=== PATIENT | female | born 1985 | race Caucasian/White ===

== ENCOUNTER 2017-08-14 11:37 | Emergency (ER) | payer SELFPAY ==
[2017-08-14 12:01] LABS: Bilirubin Negative (Negative); Blood, Urine Negative (Negative); Glucose, Urine (Dipstick) Negative (Negative); Ketone, Urine Negative (Negative); Nitrite Negative (Negative); Protein, Urine (Dipstick) Negative (Neg-Trace); Urobilinogen 0.2 mg/dL (0.2-1.0)
[2017-08-14 12:07] LABS: Bacteria/HPF 1+ HPF (None Seen)
[2017-08-14 12:14] LABS: Hyaline Casts/LPF 0-3 HYALINE CAST LPF (0-3 Hyaline); RBC/HPF 0-3 HPF (0-3)
== END 2017-08-14 12:38 | disposition home or self-care (01) ==
LOC: ERS 11:37
DX: B37.3 Candidiasis of vulva and vagina (principal); F41.9 Anxiety disorder, unspecified; F32.9 Major depressive disorder, single episode, unspecified; F17.210 Nicotine dependence, cigarettes, uncomplicated
CPT/HCPCS: 81003; 81015; 81025; 87480; 87491; 87510; 87591; 87660; 99283

== ENCOUNTER 2018-01-07 14:46 | Outpatient (CLI) | payer OTHER | END 2018-01-07 14:47 | disposition home or self-care (01) | LOC: BICMAMMO 14:46 | PROVIDERS: ATTEND Nurse Practitioner Women's Health | DX: N63.10 Unspecified lump in the right breast, unspecified quadrant (principal) | CPT/HCPCS: 77066; G0279 ==

== ENCOUNTER 2020-03-03 23:31 | Emergency (ER) | payer OTHER ==
[2020-03-03] MEDS ORDERED: Aspirin Chewable 81 MG TAB ONE (23:45)
[2020-03-04] MEDS ORDERED: Dexamethasone 10 MG/ML VIAL ONE (00:01)
[2020-03-04 00:09] LABS: #Basophils 0.1 thou/uL (0.0-0.2); #Eosinphils 0.6 thou/uL (0.0-0.7); #Lymphocytes 3.8 thou/uL (1.20-3.40); #Monocytes 0.7 thou/uL (0.11-0.59); #Neutrophils 5.1 thou/uL (1.40-6.50); %Basophils 1.1 % (0.0-1.0); %Eosinophils 5.8 % (0.0-10.0); %Lymphocytes 37.2 % (21.0-51.0); %Monocytes 6.4 % (0.0-10.0); %Neutrophils 49.4 % (42.0-75.0); Hemoglobin 14.9 g/dL (12.0-16.0); Mean Corpuscular HGB CONC 34.7 g/dL (32.0-36.0); Mean Corpuscular Hemoglobin 31.9 pg (27.0-31.0); Mean Corpuscular Volume 91.7 fL (78.0-98.0); Platelet Count 262 thou/uL (130-400); RBC Distribution Width 11.3 % (11.5-14.5); Red Blood Cell (RBC) Count 4.67 mill/uL (4.20-5.40); White Blood Cell (WBC) Count 10.3 thou/uL (4.8-10.8)
[2020-03-04 00:28] LABS: ALT (SGPT) 10 U/L (8-55); AST (SGOT) 13 U/L (5-34); Albumin 4.3 g/dL (3.5-5.0); Alkaline Phosphatase 152 U/L (40-110); Anion Gap 11 mmol/L (10-20); BUN (Urea Nitrogen) 11 mg/dL (7.0-18.7); Bilirubin, Total 0.5 mg/dL (0.2-1.2); Calc. Creatinine Clearance 0 mL/min (70-130); Calcium 9.3 mg/dL (7.8-10.44); Carbon Dioxide 28 mmol/L (22-29); Chloride 105 mmol/L (98-107); Estimated GFR-MDRD 84; Globulin 2.6 g/dL (2.4-3.5); Glucose 93 mg/dL (70-105); Potassium 3.7 mmol/L (3.5-5.1); Protein, Total 6.9 g/dL (6.0-8.3); Sodium 140 mmol/L (136-145)
--- NOTE | 2020-03-04 07:51 | RAD ---
RADIOGRAPH CHEST 1 VIEW: DATE: 03/03/2020. TIME: 11:58 PM. HISTORY: A 35-year-old female with cough and dyspnea. FINDINGS: There are no air space densities, pulmonary edema, pneumothorax, or cardiomegaly. The lateral costop hrenic angles are sharp. IMPRESSION: No acute cardiopulmonary findings. jn [] POS: JIN
--- NOTE | 2020-03-06 09:22 | EKG ---
Test Reason : Blood Pressure : / mmHG Vent. Rate : 080 BPM Atrial Rate : 080 BPM P-R Int : 172 ms QRS Dur : 074 ms QT Int : 376 ms P-R-T Axes : 047 022 024 degrees QTc Int : 433 ms Normal sinus rhythm Low voltage QRS Borderline ECG Confirmed by MAYNOR ESQUEDA ([id number]), deputy editor in chief VISH NELSON ([id number]) on 03/06/2020 9:22:03 AM Referred By: Confirmed By:MAYNOR ESQUEDA
== END 2020-03-04 01:23 | disposition home or self-care (01) ==
LOC: ERS 23:31
DX: R06.2 Wheezing (principal); R05 Cough; F41.9 Anxiety disorder, unspecified; F32.9 Major depressive disorder, single episode, unspecified; F17.210 Nicotine dependence, cigarettes, uncomplicated
CPT/HCPCS: 71045; 80053; 84484; 85025; 93005; 94640; 96360; J1100; J7620

== ENCOUNTER 2020-07-19 17:59 | Emergency (ER) | payer OTHER ==
[2020-07-19 18:22] LABS: #Basophils 0.1 thou/uL (0.0-0.2); #Eosinphils 0.3 thou/uL (0.0-0.7); #Lymphocytes 2.4 thou/uL (1.20-3.40); #Monocytes 0.4 thou/uL (0.11-0.59); #Neutrophils 4.7 thou/uL (1.40-6.50); %Basophils 0.9 % (0.0-1.0); %Eosinophils 4.2 % (0.0-10.0); %Monocytes 5.1 % (0.0-10.0); %Neutrophils 59.8 % (42.0-75.0); Hemoglobin 15.3 g/dL (12.0-16.0); Mean Corpuscular HGB CONC 33.6 g/dL (32.0-36.0); Mean Corpuscular Hemoglobin 30.8 pg (27.0-31.0); Mean Corpuscular Volume 91.7 fL (78.0-98.0); Mean Platelet Volume 7.6 fL (7.4-10.4); Platelet Count 327 thou/uL (130-400); RBC Distribution Width 11.2 % (11.5-14.5); Red Blood Cell (RBC) Count 4.99 mill/uL (4.20-5.40); White Blood Cell (WBC) Count 7.9 thou/uL (4.8-10.8)
[2020-07-19 18:41] LABS: ALT (SGPT) 9 U/L (8-55); AST (SGOT) 13 U/L (5-34); Albumin 4.4 g/dL (3.5-5.0); Alkaline Phosphatase 132 U/L (40-110); Anion Gap 17 mmol/L (10-20); BUN (Urea Nitrogen) 7 mg/dL (7.0-18.7); Bilirubin, Total 0.7 mg/dL (0.2-1.2); Calc. Creatinine Clearance 0 mL/min (70-130); Calcium 8.9 mg/dL (7.8-10.44); Carbon Dioxide 22 mmol/L (22-29); Chloride 103 mmol/L (98-107); Estimated GFR-MDRD 77; Globulin 2.8 g/dL (2.4-3.5); Glucose 137 mg/dL (70-105); Protein, Total 7.2 g/dL (6.0-8.3); Sodium 138 mmol/L (136-145)
[2020-07-19] MEDS ORDERED: Ketorolac Tromethamine 30 MG/ML VIAL ONE ×2 (19:29→19:30)
[2020-07-19 19:30] LABS: Bacteria/HPF None Seen HPF (None Seen); Bilirubin Negative (Negative); Blood, Urine 1+ (Negative); Clarity Clear (Clear); Glucose, Urine (Dipstick) Normal (Negative); Ketone, Urine Negative (Negative); Leukocyte 75 Leu/uL (Negative); Nitrite Negative (Negative); Protein, Urine (Dipstick) Negative (Neg-Trace); Squamous Epithelial 0-3 HPF (0-3); Urobilinogen Normal mg/dL (Less than 2); WBC/HPF 0-3 HPF (0-3)
[2020-07-19 19:35] LABS: BHCG - Serum Negative (NEGATIVE); Pregs Control Background? CLEAR/WHITE (CLR/WHITE); Pregs Control Bar Appear? YES (CONTROL BAR)
--- NOTE | 2020-07-19 20:53 | ULT ---
Exam: Transabdominal pelvic ultrasound HISTORY: Negative test. Cramping x1 day.. Evaluate bleeding. COMPARISON: None TECHNIQUE: Transabdominal imaging of the pelvis is performed. Ovaries are interrogated with grayscale , color flow, Doppler imaging and spectral waveform analysis FINDINGS: Uterus is identified, without myometrial masses. Uterus measures 6.0 x 3.4 x 8.9 cm Endometrium: Homogeneous echotexture, measuring 0.6 cm Right ovary: Normal echotexture, measuring 3.6 x 1.9 x 2.4 cm Left ovary: Normal echotexture, measuring 2.9 x 2.0 x 4.1 cm Free fluid: None Ovarian Doppler: Vascular flow to the left and right ovary IMPRESSION: No acute abnormality in the pelvis.
== END 2020-07-19 21:38 | disposition home or self-care (01) ==
LOC: ERS 17:59
DX: R10.2 Pelvic and perineal pain (principal); F41.9 Anxiety disorder, unspecified; F32.9 Major depressive disorder, single episode, unspecified; F17.210 Nicotine dependence, cigarettes, uncomplicated; Z79.899 Other long term (current) drug therapy
CPT/HCPCS: 36415; 76856; 80053; 81003; 81015; 84703; 85025; 87086; 93976; 96372; J1885

== ENCOUNTER 2020-09-06 12:29 | Emergency (ER) | payer OTHER ==
[2020-09-06 14:51] LABS: Hemoglobin 15.2 g/dL (12.0-16.0); Mean Corpuscular HGB CONC 34.1 g/dL (32.0-36.0); Mean Corpuscular Hemoglobin 31.2 pg (27.0-31.0); Mean Corpuscular Volume 91.3 fL (78.0-98.0); Mean Platelet Volume 8.3 fL (7.4-10.4); Platelet Count 216 thou/uL (130-400); Red Blood Cell (RBC) Count 4.88 mill/uL (4.20-5.40)
[2020-09-06 15:07] LABS: Band 7 % (5-11); Eosinophils 3 % (0-10); Lymphocytes 20 % (21-51); MDiff Complete? YES; Monocytes 6 % (0-10); Neutrophil 62 % (42-75); Platelet Morphology Comment Appears Adequate; RBC Morphology Normal; Reactive Lymphocytes 2 % (0-10)
[2020-09-06 15:33] LABS: ALT (SGPT) 13 U/L (8-55); AST (SGOT) 13 U/L (5-34); Albumin 3.9 g/dL (3.5-5.0); Alkaline Phosphatase 122 U/L (40-110); Anion Gap 13 mmol/L (10-20); BUN (Urea Nitrogen) 8 mg/dL (7.0-18.7); Bilirubin, Total 0.6 mg/dL (0.2-1.2); Calc. Creatinine Clearance 0 mL/min (70-130); Carbon Dioxide 25 mmol/L (22-29); Chloride 105 mmol/L (98-107); Estimated GFR-MDRD 84; Glucose 84 mg/dL (70-105); Lipase 14 U/L (8-78); Potassium 4.3 mmol/L (3.5-5.1); Protein, Total 6.9 g/dL (6.0-8.3); Sodium 139 mmol/L (136-145)
[2020-09-06] MEDS ORDERED: Mag-Al 1200 mg/1200 mg/30 ML UDCUP ONE (17:28)
[2020-09-06] MEDS ORDERED: Lidocaine Viscous Sol 2% 15 ml UD Cup ONE (17:28)
[2020-09-06] MEDS ORDERED: Ketorolac Tromethamine 30 MG/ML VIAL ONE (17:28)
--- NOTE | 2020-09-06 18:12 | CT ---
CT Cervical Spine WO Con Indication: Neck and back pain COMPARISON: MR the cervical spine without contrast dated January 10, 2017. FINDINGS: Fracture: None. Spinal alignment: There is some reversal the normal cervical lordosis. Craniocervical junction: Within normal limits. Vertebral body heights: Maintained. Cervical spine degenerative change: There is postprocedural change consistent with an ACDF spanning C 5 and C6. The instrumentation appears intact. There is solid osseous incorporation of the interbody bone graft. Lung apices: Clear. IMPRESSION: 1. No acute fracture or subluxation demonstrated. 2. Interval C5-C6 ACDF.
--- NOTE | 2020-09-06 18:31 | CT ---
CT THORACIC SPINE: History: Back pain between the shoulder blades. Pain is so bad that it caused her to faint. Technique: Multiple contiguous axial images were obtained in a CT of the thoracic spine without contr ast. Sagittal and coronal reformats were performed. FINDINGS: Vertebral bodies and intervertebral discs of the thoracic spine demonstrate normal height and alignme nt without fracture or subluxation. No prevertebral soft tissue swelling is seen. No significant degenerative changes are seen in the thoracic spine. There is no bony narrowing of the central canal or of the neural foramina throughout the thoracic spine. The prevertebral and paraspinal soft tissues are unremarkable. IMPRESSION: No significant thoracic spine abnormality. POS: EAA
[2020-09-06] MEDS ORDERED: Dexamethasone 10 MG/ML VIAL ONE (18:36)
[2020-09-06] MEDS ORDERED: Diazepam 5 MG TAB ONE (18:36)
== END 2020-09-06 18:42 | disposition home or self-care (01) ==
LOC: ERS 12:29
DX: M54.6 Pain in thoracic spine (principal); F41.9 Anxiety disorder, unspecified; F32.9 Major depressive disorder, single episode, unspecified; F17.210 Nicotine dependence, cigarettes, uncomplicated; Z79.899 Other long term (current) drug therapy
CPT/HCPCS: 36415; 72125; 72128; 80053; 83690; 85025; 96372; J1100; J1885

== ENCOUNTER 2020-09-20 18:46 | Emergency (ER) | payer OTHER ==
[~2020-09-20 18:46] MED LIST: Magnevist 469MG/ML 20 ML VIAL ONE
[2020-09-20] MEDS ORDERED: Ketorolac Tromethamine 30 MG/ML VIAL ONE (19:33)
[2020-09-20 19:39] LABS: #Basophils 0.1 thou/uL (0.0-0.2); #Eosinphils 0.2 thou/uL (0.0-0.7); #Lymphocytes 2.7 thou/uL (1.20-3.40); #Monocytes 0.7 thou/uL (0.11-0.59); #Neutrophils 5.8 thou/uL (1.40-6.50); %Eosinophils 2.5 % (0.0-10.0); %Lymphocytes 28.4 % (21.0-51.0); %Monocytes 7.3 % (0.0-10.0); %Neutrophils 60.8 % (42.0-75.0); Hemoglobin 15.2 g/dL (12.0-16.0); Mean Corpuscular HGB CONC 33.7 g/dL (32.0-36.0); Mean Corpuscular Volume 92.1 fL (78.0-98.0); Mean Platelet Volume 7.9 fL (7.4-10.4); Platelet Count 239 thou/uL (130-400); RBC Distribution Width 11.5 % (11.5-14.5); Red Blood Cell (RBC) Count 4.91 mill/uL (4.20-5.40); White Blood Cell (WBC) Count 9.5 thou/uL (4.8-10.8)
--- NOTE | 2020-09-20 20:54 | MRI ---
MRI of thecervical spine: 09/20/2020 COMPARISON:01/10/2017 HISTORY:Right arm numbness TECHNIQUE: Multiplanar multisequence MR imaging of thecervical spine with and without contrast Findings:The sagittal STIR imaging demonstrates no focal area of osseous marrow edema. Anterior disce ctomy and fusion hardware is present at C5-6. Evaluation at the C5-6 level is limited secondary to postoperative artifact. Motion artifact slightly limits detailed assessment on the axial imaging. There is no anterolisthesis or retrolisthesis. No prevertebral soft tissue swelling is seen. C2-3: No central canal or neural foraminal stenosis. C3-4: No central canal or neural foraminal stenosis C4-5: No central canal or neural foraminal stenosis C5-6: No central canal or neural foraminal stenosis C6-7: There is a disc herniation in the right paracentral and right foraminal region with associated annular tear. This leads to significant lateral central canal stenosis on the right and moderate/severe right neural foraminal stenosis. No significant left neural foraminal stenosis. C7-T1: No significant central canal or neural foraminal stenosis. The postcontrast imaging demonstrates no abnormal enhancement involving the contents of the thecal sa c, the imaged osseous structures, or the intervertebral discs. The right paracentral/right foraminal disc herniation at C6-7 appears new when compared to the prior examination. IMPRESSION:Right paracentral/right foraminal disc herniation at C6-7 with significant neural foramina l stenosis.
[2020-09-20 21:44] LABS: ALT (SGPT) 11 U/L (8-55); AST (SGOT) 19 U/L (5-34); Albumin 3.9 g/dL (3.5-5.0); Alkaline Phosphatase 130 U/L (40-110); Anion Gap 16 mmol/L (10-20); BUN (Urea Nitrogen) 8 mg/dL (7.0-18.7); Bilirubin, Total 0.4 mg/dL (0.2-1.2); Calc. Creatinine Clearance 0 mL/min (70-130); Calcium 8.6 mg/dL (7.8-10.44); Carbon Dioxide 22 mmol/L (22-29); Chloride 102 mmol/L (98-107); Estimated GFR-MDRD 84; Globulin 3.4 g/dL (2.4-3.5); Glucose 74 mg/dL (70-105); Potassium 4.4 mmol/L (3.5-5.1); Protein, Total 7.3 g/dL (6.0-8.3); Sodium 136 mmol/L (136-145)
[2020-09-20] MEDS ORDERED: methylPREDNISolone Sod Succ/PF 125 MG/2 ML VIAL ONE (22:09)
== END 2020-09-20 22:25 | disposition home or self-care (01) ==
LOC: ERS 18:46
DX: M50.223 Other cervical disc displacement at C6-C7 level (principal); F41.9 Anxiety disorder, unspecified; F32.9 Major depressive disorder, single episode, unspecified; F17.210 Nicotine dependence, cigarettes, uncomplicated; Z79.01 Long term (current) use of anticoagulants; Z79.899 Other long term (current) drug therapy; Z85.3 Personal history of malignant neoplasm of breast
CPT/HCPCS: 36415; 72156; 80053; 85025; 96374; 96375; A9579; J1885; J2930

== ENCOUNTER 2020-09-24 06:36 | Outpatient (CLI) | payer OTHER ==
[2020-09-25 13:41] LABS: SARS-CoV-2 MS2 Positive; SARS-CoV-2 N Gene Negative; SARS-CoV-2 S Gene Negative; SARS-CoV-2 by NAA Not Detected (NotDetected); SARS-CoV-2 orf1ab Negative
== END 2020-09-24 06:37 | disposition home or self-care (01) ==
LOC: LABBT 06:36
PROVIDERS: ATTEND Neurological Surgery
DX: Z01.812 Encounter for preprocedural laboratory examination (principal); M54.12 Radiculopathy, cervical region; Z20.828 Contact with and (suspected) exposure to other viral communicable diseases
CPT/HCPCS: 87635; U0003

== ENCOUNTER 2020-09-24 09:15 | Inpatient (IN) | payer OTHER ==
[2020-09-28 13:29] VITALS: BMI 30.5
[2020-09-29] MEDS ORDERED: Scopolamine 1.5 mg/72 hour Patch ONE (08:58)
[2020-09-29] MEDS ORDERED: Midazolam HCl 2 mg/2 ml Vial ONE ×2 (08:58→09:46)
[2020-09-29] MEDS ORDERED: PROPOFOL 200 MG/20 ML VIAL ONE (09:01)
[2020-09-29] MEDS ORDERED: Lidocaine 1% PF 5 ML VIAL ONE (09:01)
[2020-09-29] MEDS ORDERED: Rocuronium Bromide 10 MG/ML (10ML VIAL) ONE (09:01)
[2020-09-29] MEDS ORDERED: Glycopyrrolate 0.2 MG/ML 5 ML SYRINGE ONE (09:01)
[2020-09-29] MEDS ORDERED: Dexamethasone 20 MG/5 ML VIAL ONE (09:01)
[2020-09-29] MEDS ORDERED: Sodium Chloride 0.9% 10 ML ONE (09:43)
[2020-09-29] MEDS ORDERED: Fentanyl 100 MCG/2 ML VIAL ONE (09:46)
--- NOTE | 2020-09-29 11:10 | OP ---
DATE OF PROCEDURE: 09/29/2020 PHYSIOTHERAPY ASSISTANT: Nawaf. PROCEDURES PERFORMED: 1. Removal of hardware, C5-C6. 2. Exploration of spinal fusion, C5-C6. 3. Anterior cervical diskectomy and fusion, C6-C7. 4. Interbody arthrodesis. 5. Intervertebral biomechanical device. 6. Local morselized autograft. 7. Demineralized bone matrix. 8. Anterior titanium instrumentation, C5 through C7. DESCRIPTION OF PROCEDURE: The patient was brought to the operating room and intubated. She was positioned supine with head in modest extension on a gel-filled donut. An incision was made in the right precervical area and dissected medial to the sternocleidomastoid muscle, identified the anterior cervical spine and the prior plate. The prior plate was removed without difficulty. We explored C5-C6 and could not confirm solid fusion. The neck was placed in distraction across C6-C7 and completely decompressed the intervertebral disk beneath the posterior longitudinal ligament from foramen to foramen, completely decompressing the neural elements. The bony endplates were then decorticated for the purpose of arthrodesis and appropriate-sized intervertebral biomechanical PEEK device was brought into the field, filled with demineralized bone matrix and local morselized autograft and tapped in place securely at C6-C7. Next, an anterior plate was brought into the field and secured to C5, C6, and C7 using two 14-mm screws at each level. It should be noted that the plate was separate and distinct from the intervertebral devices and not integral to them. The wound was then extensively irrigated. MAC hemostasis was secured. The wound was closed in anatomic layers over a drain. Job ID: [id number]
[2020-09-29] MEDS ORDERED: tiZANidine HCl 4 MG TAB PO PRN (11:45)
[2020-09-29] MEDS ORDERED: Morphine 4 MG/ML VIAL SLOW IVP PRN (11:45)
[2020-09-29] MEDS ORDERED: Morphine 2 MG/ML VIAL SLOW IVP PRN (11:45)
[2020-09-29] MEDS ORDERED: Ondansetron PF 4 MG/2 ML Vial IVP PRN (11:45)
[2020-09-29] MEDS ORDERED: Milk Of Magnesia 30 ML UDCUP PO PRN (11:45)
[2020-09-29] MEDS ORDERED: diphenhydrAMINE 50 MG/ML VIAL IVP PRN (11:45)
[2020-09-29] MEDS ORDERED: Promethazine HCl 25 MG/ML VIAL IM PRN (11:45)
[2020-09-29] MEDS ORDERED: traMADol HCl 50 MG TAB PO PRN ×2 (11:45)
[2020-09-29] MEDS ORDERED: Acetaminophen/Codeine 30-300mg Tablet PO PRN ×2 (11:45)
[2020-09-29] MEDS ORDERED: Promethazine HCl 12.5 MG SUPP PR PRN (11:45)
[2020-09-29] MEDS ORDERED: Mag-Al 1200 mg/1200 mg/30 ML UDCUP PO PRN (11:45)
[2020-09-29] MEDS ORDERED: diphenhydrAMINE 25 MG CAP PO PRN (11:45)
[2020-09-29] MEDS ORDERED: Promethazine 25 MG TAB PO PRN (11:45)
[2020-09-29] MEDS ORDERED: Ibuprofen 800 MG TAB PO PRN (12:10)
[2020-09-29] MEDS ORDERED: Acetaminophen 500 MG TAB PO PRN (12:10)
[2020-09-29] MEDS: CEFAZOLIN 2 GM in Premix Bag 1 BAG IVPB SCH (18:07)
[2020-09-29] MEDS: Sodium Chloride 0.9% 1,000 ML IV SCH (19:18)
[2020-09-29] MEDS ORDERED: Lurasidone HCl 40 MG TABLET PO SCH (21:00)
[2020-09-29] MEDS: busPIRone HCl 10 MG TAB PO SCH (21:12)
[2020-09-30] MEDS: Sodium Chloride 0.9% 1,000 ML IV SCH (00:50)
[2020-09-30] MEDS: CEFAZOLIN 2 GM in Premix Bag 1 BAG IVPB SCH ×2 (01:12→11:52)
--- NOTE | 2020-09-30 07:54 | DIS ---
DATE OF ADMISSION: 09/29/2020 DATE OF DISCHARGE: 09/30/2020 PROCEDURE: Removal of hardware, C6-C7 ACDF. HISTORY OF PRESENT ILLNESS: The patient is a 35-year-old female known to us from prior C5-C6 ACDF in 2017, who returned to our office recently for progressive right C7 radiculopathy and weakness in the right arm. She was found to have a large right-sided disk herniation below her prior fusion at C6-C7. She underwent removal of hardware and C6-C7 ACDF on 09/29/2020. Following the surgery, she was transitioned to the Med/Surg floor, where her pain has been well controlled with p.o. medications. She has been tolerating a regular diet, and she has been voiding appropriately. She has been ambulating easily in the department. MICHAEL drain had minimal output overnight, only 25 mL and was removed on postoperative day #1. The patient was dismissed to home and will follow up in 2 weeks. She was provided with scripts for Tylenol 3 and Zanaflex. BMP were checked prior to discharge. Job ID: [id number]
[2020-09-30] MEDS ORDERED: Escitalopram Oxalate 20 mg Tablet PO SCH (09:00)
[2020-09-30] MEDS: busPIRone HCl 10 MG TAB PO SCH (09:16)
[2020-09-30 09:30] VITALS: BP 119/84; TEMP 98.4
[2020-09-30] MEDS ORDERED: FLU VACC QS2020-21(6MOS UP)/PF 60 MCG/0.5 ML SYRINGE IM ONE (15:45)
[2020-09-30] MEDS ORDERED: LURASIDONE HCL 60 MG PO SCH (21:00)
== END 2020-09-30 12:46 | disposition home or self-care (01) | DRG 473 ==
LOC: SURG A 09-29 07:41 → EDSTATUS 09-29 09:15 → SJJU 09-29 14:49
PROVIDERS: ADMIT Neurological Surgery; ATTEND Neurological Surgery
PROC: 0RG10A0 Fusion of Cervical Vertebral Joint with Interbody Fusion Device, Anterior Approach, Anterior Column, Open Approach (ICD-10-PCS; principal; 2020-09-29)
PROC: 0RB30ZZ Excision of Cervical Vertebral Disc, Open Approach (ICD-10-PCS; 2020-09-29)
PROC: 01N10ZZ Release Cervical Nerve, Open Approach (ICD-10-PCS; 2020-09-29)
PROC: 0RP104Z Removal of Internal Fixation Device from Cervical Vertebral Joint, Open Approach (ICD-10-PCS; 2020-09-29)
PROC: 3E02340 Introduction of Influenza Vaccine into Muscle, Percutaneous Approach (ICD-10-PCS; 2020-09-30)
DX: M50.123 Cervical disc disorder at C6-C7 level with radiculopathy (principal); Z98.51 Tubal ligation status; Z79.899 Other long term (current) drug therapy; Z23 Encounter for immunization; Z20.828 Contact with and (suspected) exposure to other viral communicable diseases
CPT/HCPCS: 90471; 90662; C1713; C1776; G0008; J0690; J1100; J2250; J2704; J3010; J3490; Q0163

== ENCOUNTER 2020-10-08 09:14 | Outpatient (CLI) | payer OTHER ==
--- NOTE | 2020-10-08 09:33 | RAD ---
Exam: 4 views cervical spine HISTORY: Follow-up surgery performed 9 days ago. COMPARISON: 04/03/2017. FINDINGS: There is an anterior fusion plate with transvertebral body screw at C5-C7. The fusion plate is not flush against the C7 vertebral body. There is a disc prosthesis at C5-C6 and C6-C7. Disc prosthesis at C6-C7 is along the anterior aspect of the disc space. There is no significant preverteb ral soft tissue swelling. Predental space is normal. Straightening of cervical lordosis is identified. On the AP and open-mouth projection, no acute abnormality. Swimmer's view demonstrates a normal-appea ring cervicothoracic junction. IMPRESSION: Cervical fusion changes as above. Transcribed Date/Time: 10/08/2020 9:57 AM
== END 2020-10-08 09:15 | disposition home or self-care (01) ==
LOC: TBSIIMAG 09:14
PROVIDERS: ATTEND Neurological Surgery
DX: M54.12 Radiculopathy, cervical region (principal); Z98.1 Arthrodesis status
CPT/HCPCS: 72040

== ENCOUNTER 2023-03-08 19:22 | Emergency (ER) | payer OTHER ==
[2023-03-08] MEDS ORDERED: Ketamine In 0.9 % NaCl 50 MG/5 ML SYRINGE ONE ×4 (21:52→22:21)
[2023-03-08] MEDS ORDERED: LORazepam 2 MG/ML SYR.(CARPUJECT) ONE ×2 (22:24→22:29)
[2023-03-08] MEDS ORDERED: PROPOFOL 20 ML ONE (22:29)
== END 2023-03-09 04:58 | disposition home or self-care (01) ==
LOC: ERS 19:22
DX: S61.011A Laceration without foreign body of right thumb without damage to nail, initial encounter (principal); S61.216A Laceration without foreign body of right little finger without damage to nail, initial encounter; S61.215A Laceration without foreign body of left ring finger without damage to nail, initial encounter; S81.011A Laceration without foreign body, right knee, initial encounter; F17.210 Nicotine dependence, cigarettes, uncomplicated; W01.110A Fall on same level from slipping, tripping and stumbling with subsequent striking against sharp glass, initial encounter
CPT/HCPCS: 12005; 96374; J2060; J2704; J3490